=== PATIENT | male | born 1935 | race African-American/Black ===

== ENCOUNTER 2017-12-11 11:56 | Inpatient (IN) | payer OTHER ==
[~2017-12-11] VITALS: Ht 162.6 cm; Wt 75.3 kg
[2017-12-11] VITALS (7 sets, daily range): BP systolic 90–153; BP diastolic 52–74
[~2017-12-11 11:56] MED LIST: AMLODIPINE-BEN1 EAC3 PO; ASPIRIN81 M1 PO; BENAZEPRIL HCL5 MG PO; CARDIZEM120 MG PO; CIPRO500 MG PO; FINASTERIDE5 MG PO; LIPITOR40 MG PO; NOVOLOG100 UNIT/3 SQ; PREDNISOLONE5 MG PO
[2017-12-11 12:41] LABS: HEMATOCRIT 25.4 % (38.0-50.0); HEMOGLOBIN 7.8 G/DL (12.5-16.6); MCH 23.9 PG (29.0-34.0); MCHC 30.7 G/DL (30.0-36.0); MCV 77.9 FL (86-99); PLATELET COUNT 254 K/uL (156-360); RBC DIS.WIDTH-SD 61.8 % (39-53); RED BLOOD COUNT 3.26 M/uL (4.00-5.50); WHITE BLOOD COUNT 9.6 K/uL (4.1-10.2)
[2017-12-11 12:45] LABS: BASOPHIL (%) 0.3 % (0-1); EOSINOPHIL (%) 1.9 % (0-5); EOSINOPHIL COUNT 0.2 K/uL (0-0.3); IMMATURE GRANULOCYTE (%) 0.4 % (0.0-0.7); LYMPHOCYTE (%) 14.3 % (15-42); LYMPHOCYTE COUNT 1.4 K/uL (1.0-2.8); MONOCYTE (%) 10.1 % (3-12)
[2017-12-11 12:46] LABS: INTER. NORMALIZED RATIO 1.1
[2017-12-11 12:49] LABS: CHLORIDE 107 mEq/L (99-109); POTASSIUM 4.4 mEq/L (3.7-5.4); SODIUM 141 mEq/L (136-147)
[2017-12-11 12:55] LABS: CREATININE 1.7 mg/dL (0.6-1.3); GFR ESTIMATE (CALCULATED) 50 mL/min/ (58.99-99999)
[2017-12-11 12:56] LABS: GLUCOSE 54 mg/dL (70-99); UREA NITROGEN (BUN) 32 mg/dL (9-23)
[2017-12-11] MEDS ORDERED: NORVASC10 MG PO (13:28)
[2017-12-11] MEDS ORDERED: CLOPIDOGREL75 MG PO (13:29)
[2017-12-11] MEDS ORDERED: LIPITOR40 MG PO (13:29)
[2017-12-11] MEDS ORDERED: HUMALOG MI100 UNIT/6 SC ×3 (13:32→14:01)
[2017-12-11] MEDS ORDERED: COZAAR50 MG PO (13:33)
[2017-12-11] MEDS ORDERED: AVAPRO150 MG PO (13:33)
[2017-12-11] MEDS ORDERED: PROTONIX40 MG PO (13:34)
[2017-12-11] MEDS ORDERED: MIRALAX17 GM PO ×2 (13:37→14:04)
[2017-12-11] MEDS ORDERED: FLOMAX0.4 MG PO (13:38)
[2017-12-11] MEDS ORDERED: AKWA TEARS15 ML BOTH EYES (13:39)
[2017-12-11] MEDS ORDERED: DULCOLAX10 MG PR (14:02)
[2017-12-11] MEDS ORDERED: FLEET MINERAL133 ML PR (14:02)
[2017-12-11] MEDS ORDERED: GLUCOSE GEL38 GM PO (14:03)
[2017-12-11] MEDS ORDERED: MILK OF MAGN PO (14:03)
[2017-12-11] MEDS ORDERED: GLUCAGON HCL1 MG IM (14:03)
[2017-12-11] MEDS ORDERED: TYLENOL REGULA325 MG PO (14:04)
[2017-12-12] VITALS (7 sets, daily range): BP systolic 128–157; BP diastolic 64–74
[2017-12-12 05:58] LABS: BASOPHIL (%) 0.3 % (0-1); EOSINOPHIL (%) 1.8 % (0-5); EOSINOPHIL COUNT 0.2 K/uL (0-0.3); HEMATOCRIT 32.9 % (38.0-50.0); IMMATURE GRANULOCYTE (%) 0.7 % (0.0-0.7); LYMPHOCYTE (%) 10.1 % (15-42); LYMPHOCYTE COUNT 0.9 K/uL (1.0-2.8); MCH 24.9 PG (29.0-34.0); MCHC 31.3 G/DL (30.0-36.0); MCV 79.7 FL (86-99); MONOCYTE (%) 9.6 % (3-12); MONOCYTE COUNT 0.9 K/uL (0-0.8); NEUTROPHIL (%) 77.5 % (45-76); PLATELET COUNT 253 K/uL (156-360); RBC DIS.WIDTH-CV 19.7 % (11.8-14.6); RBC DIS.WIDTH-SD 56.8 % (39-53)
[2017-12-12 06:10] LABS: HEMOGLOBIN 10.3 G/DL (12.5-16.6); RED BLOOD COUNT 4.13 M/uL (4.00-5.50)
[2017-12-12 06:26] LABS: CHLORIDE 107 MEQ/L (99-109); GFR ESTIMATE (CALCULATED) > 59 mL/min/ (58.99-99999); IRON 74 MCG/DL (35-150); POTASSIUM 4.4 MEQ/L (3.7-5.4); SODIUM 141 MEQ/L (136-147); TRANSFERRIN (TIBC) 267.8 mg/dL (215-380); TRANSFERRIN SATUR. 28 % (20-55); UREA NITROGEN (BUN) 23 mg/dL (9-23)
[2017-12-12 06:28] LABS: CREATININE 1.2 MG/DL (0.6-1.3); GLUCOSE 50 mg/dL (70-99)
[2017-12-13 00:14] VITALS: BP 148/75
[2017-12-13 03:56] VITALS: BP 140/64
[2017-12-13 05:32] LABS: BASOPHIL (%) 0.4 % (0-1); EOSINOPHIL (%) 2.1 % (0-5); EOSINOPHIL COUNT 0.2 K/uL (0-0.3); HEMATOCRIT 32.8 % (38.0-50.0); HEMOGLOBIN 10.3 G/DL (12.5-16.6); IMMATURE GRANULOCYTE (%) 0.5 % (0.0-0.7); LYMPHOCYTE (%) 12.8 % (15-42); MCH 25.2 PG (29.0-34.0); MCHC 31.4 G/DL (30.0-36.0); MCV 80.4 FL (86-99); MONOCYTE (%) 12.1 % (3-12); NEUTROPHIL (%) 72.1 % (45-76); NEUTROPHIL COUNT 5.7 K/uL (1.8-6.4); PLATELET COUNT 238 K/uL (156-360); RBC DIS.WIDTH-CV 20.1 % (11.8-14.6); RBC DIS.WIDTH-SD 58.9 % (39-53); RED BLOOD COUNT 4.08 M/uL (4.00-5.50)
[2017-12-13 06:03] LABS: CHLORIDE 102 MEQ/L (99-109); CREATININE 1.1 MG/DL (0.6-1.3); GFR ESTIMATE (CALCULATED) > 59 mL/min/ (58.99-99999); POTASSIUM 4.1 MEQ/L (3.7-5.4); SODIUM 137 MEQ/L (136-147); UREA NITROGEN (BUN) 15 mg/dL (9-23)
[2017-12-13 06:04] LABS: GLUCOSE 161 mg/dL (70-99)
[2017-12-13 08:25] VITALS: BP 160/82
[2017-12-13 08:45] VITALS: BP 158/69
[2017-12-13 11:45] VITALS: BP 164/87
[2017-12-13 20:40] VITALS: BP 161/74
[2017-12-14 01:10] VITALS: BP 158/73
[2017-12-14 05:29] LABS: BASOPHIL (%) 0.2 % (0-1); EOSINOPHIL (%) 1.5 % (0-5); EOSINOPHIL COUNT 0.2 K/uL (0-0.3); HEMATOCRIT 34.2 % (38.0-50.0); HEMOGLOBIN 10.8 G/DL (12.5-16.6); IMMATURE GRANULOCYTE (%) 0.3 % (0.0-0.7); LYMPHOCYTE (%) 8.7 % (15-42); LYMPHOCYTE COUNT 0.9 K/uL (1.0-2.8); MCH 25.4 PG (29.0-34.0); MCHC 31.6 G/DL (30.0-36.0); MCV 80.5 FL (86-99); MONOCYTE (%) 9.3 % (3-12); NEUTROPHIL COUNT 8.2 K/uL (1.8-6.4); PLATELET COUNT 240 K/uL (156-360); RBC DIS.WIDTH-CV 19.9 % (11.8-14.6); RBC DIS.WIDTH-SD 58.5 % (39-53); RED BLOOD COUNT 4.25 M/uL (4.00-5.50); WHITE BLOOD COUNT 10.2 K/uL (4.1-10.2)
[2017-12-14 05:55] LABS: CHLORIDE 101 MEQ/L (99-109); GFR ESTIMATE (CALCULATED) > 59 mL/min/ (58.99-99999); GLUCOSE 199 mg/dL (70-99); POTASSIUM 4.3 MEQ/L (3.7-5.4); SODIUM 135 MEQ/L (136-147); UREA NITROGEN (BUN) 15 mg/dL (9-23)
[2017-12-14 07:36] VITALS: BP 142/70
[2017-12-14 10:58] VITALS: BP 148/72
[2017-12-14 15:55] VITALS: BP 141/85
[2017-12-14] MEDS ORDERED: HUMALOG MI100 UNIT/6 SC ×2 (19:27→19:28)
[2017-12-14] MEDS ORDERED: HUMALOG100 UNIT/1 SC (19:30)
[2017-12-14 23:33] VITALS: BP 137/75
[2017-12-15 07:21] VITALS: BP 144/74
[2017-12-15 10:25] VITALS: BP 136/62
== END 2017-12-15 13:19 | DRG 379 ==
LOC: EME 11:56 → EDOF 13:54 → 3EAST 13:54 → ENRESERV 13:59 → EDOF 14:13 → ENRESERV 16:48 → 3EAST 20:12
PROVIDERS: Emergency Medicine; Family Medicine Sports Medicine
PROC: 30233N1 Transfusion of Nonautologous Red Blood Cells into Peripheral Vein, Percutaneous Approach (ICD-10-PCS; principal; 2017-12-11)
PROC: 0D568ZZ Destruction of Stomach, Via Natural or Artificial Opening Endoscopic (ICD-10-PCS; 2017-12-13)
DX: K31.811 Angiodysplasia of stomach and duodenum with bleeding (principal); K31.89 Other diseases of stomach and duodenum; D50.0 Iron deficiency anemia secondary to blood loss (chronic); I48.0 Paroxysmal atrial fibrillation; I12.9 Hypertensive chronic kidney disease with stage 1 through stage 4 chronic kidney disease, or unspecified chronic kidney disease; N18.9 Chronic kidney disease, unspecified; E11.22 Type 2 diabetes mellitus with diabetic chronic kidney disease; E11.649 Type 2 diabetes mellitus with hypoglycemia without coma; K21.9 Gastro-esophageal reflux disease without esophagitis; E78.5 Hyperlipidemia, unspecified; K59.00 Constipation, unspecified; M19.90 Unspecified osteoarthritis, unspecified site; N32.0 Bladder-neck obstruction; E66.9 Obesity, unspecified; Z87.891 Personal history of nicotine dependence; Z68.28 Body mass index [BMI] 28.0-28.9, adult; Z79.4 Long term (current) use of insulin; Z85.46 Personal history of malignant neoplasm of prostate; Z87.11 Personal history of peptic ulcer disease; Z86.73 Personal history of transient ischemic attack (TIA), and cerebral infarction without residual deficits; Z87.440 Personal history of urinary (tract) infections; Z89.432 Acquired absence of left foot
CPT/HCPCS: 80048; 80048 91; 82948; 83540; 84466; 85025; 85025 91; 85610; 86850; 86900; 86901; 86920; 94799; 99281; 99285; J1815; J7030; J7120; P9016

== ENCOUNTER 2018-04-19 03:11 | Emergency (ER) | payer OTHER ==
[~2018-04-19] VITALS: Ht 170.2 cm; Wt 79.8 kg
[~2018-04-19 03:11] MED LIST changes: +AKWA TEARS15 ML BOTH EYES; +AVAPRO150 MG PO; +CLOPIDOGREL75 MG PO; +COZAAR50 MG PO; +DULCOLAX10 MG PR; +FLEET MINERAL133 ML PR; +FLOMAX0.4 MG PO; +GLUCAGON HCL1 MG IM; +GLUCOSE GEL38 GM PO; +HUMALOG MI100 UNIT/6 SC; +HUMALOG100 UNIT/1 SC; +MILK OF MAGN PO; +MIRALAX17 GM PO; +NORVASC10 MG PO; +PROTONIX40 MG PO; +TYLENOL REGULA325 MG PO
[2018-04-19 04:38] LABS: HEMATOCRIT 24.7 % (38.0-50.0); HEMOGLOBIN 7.5 G/DL (12.5-16.6); MCH 27.6 PG (29.0-34.0); MCHC 30.4 G/DL (30.0-36.0); MCV 90.8 FL (86-99); PLATELET COUNT 205 K/uL (156-360); RBC DIS.WIDTH-CV 17.7 % (11.8-14.6); RBC DIS.WIDTH-SD 58.2 % (39-53); RED BLOOD COUNT 2.72 M/uL (4.00-5.50); WHITE BLOOD COUNT 10.5 K/uL (4.1-10.2)
[2018-04-19 04:51] LABS: ALBUMIN 3.4 g/dL (3.2-4.8); CHLORIDE 106 mEq/L (99-109); POTASSIUM 4.5 mEq/L (3.7-5.4); SODIUM 141 mEq/L (136-147)
[2018-04-19 04:54] LABS: GLUCOSE 189 mg/dL (70-99); TOTAL PROTEIN 6.5 g/dL (6.4-8.3)
[2018-04-19 04:55] LABS: TOTAL BILIRUBIN 0.5 mg/dL (0.0-1.0)
[2018-04-19 04:57] LABS: ALKALINE PHOSPHATASE 98 IU/L (3-129); GFR ESTIMATE (CALCULATED) > 59 mL/min/ (58.99-99999)
[2018-04-19 04:58] LABS: ERTH.SED.RATE 66 MM/HR (0-20); UREA NITROGEN (BUN) 22 mg/dL (9-23)
[2018-04-19 04:59] LABS: AST (GOT) 18 IU/L (2-34); DIRECT BILIRUBIN 0.2 mg/dL (0.0-0.3)
[2018-04-19 05:00] LABS: ALT (GPT) 11 IU/L (3-49)
[2018-04-19 05:01] LABS: LIPASE 10 U/L (1.0-51.0)
[2018-04-19 05:13] LABS: APPEARANCE CLEAR ((CLEAR)); BILIRUBIN NEGATIVE; BLOOD NEGATIVE; COLOR YELLOW ((YELLOW)); GLUCOSE (STRIP) 50; KETONES NEGATIVE; LEUKOCYTES NEGATIVE; NITRITE NEGATIVE; PROTEIN (STRIP) NEGATIVE; SPECIFIC GRAVITY 1.019 (1.000-1.030); UCUL ADDED? NO
[2018-04-19] MEDS ORDERED: ZOFRAN4 MG PO (05:18)
[2018-04-19 05:30] VITALS: BP 170/89
== END 2018-04-19 06:18 ==
LOC: EME → EDBD 03:11 → EME 06:18
PROVIDERS: Emergency Medicine
DX: K29.00 Acute gastritis without bleeding (principal); Z89.432 Acquired absence of left foot; R06.02 Shortness of breath; K44.9 Diaphragmatic hernia without obstruction or gangrene; K80.20 Calculus of gallbladder without cholecystitis without obstruction; J98.11 Atelectasis; N20.0 Calculus of kidney; K57.30 Diverticulosis of large intestine without perforation or abscess without bleeding; K42.9 Umbilical hernia without obstruction or gangrene; N28.1 Cyst of kidney, acquired; I10 Essential (primary) hypertension; E78.5 Hyperlipidemia, unspecified; E11.9 Type 2 diabetes mellitus without complications; Z79.84 Long term (current) use of oral hypoglycemic drugs; Z86.73 Personal history of transient ischemic attack (TIA), and cerebral infarction without residual deficits; Z87.891 Personal history of nicotine dependence
CPT/HCPCS: 71045; 74176; 80048; 80076; 81003; 83605; 83690; 85027; 85651; 87040; J2405; J7030